=== PATIENT | female | born 1935 | race Caucasian/White ===

== ENCOUNTER 2017-09-21 13:58 | Emergency (ER) | payer OTHER, MEDICARE ==
[~2017-09-21] VITALS: Ht 162.6 cm; Wt 81.2 kg
[~2017-09-21 13:58] MED LIST: ACARBOSE50 MG PO; ASPIRIN81 M2 PO; CAL-CITRATE PL1 EACH PO; CIPRO500 MG PO; COLACE100 MG PO; DAILY MULTIPLE1 EAC2 PO; ENDOCET 5-3251 EACH PO; FENOFIBRATE160 M1 PO; GLIMEPIRIDE4 MG PO; HYDROCHLOROTH12.5 M3 PO; HYDROCODON-ACE1 EAC7 PO; JANUVIA100 MG PO; KEFLEX500 MG PO; LEXAPRO10 MG PO; METFORMIN HCL1000 MG PO; MIRALAX255 GM PO; PANTOPRAZOLE SO40 MG PO; PHILLIPS' COLO1 EACH PO; PRAVASTATIN SOD40 MG PO; TORADOL10 MG PO; XANAX0.25 MG PO; ZOFRAN4 MG PO
[2017-09-21 14:35] LABS: APPEARANCE CLEAR ((CLEAR)); BILIRUBIN NEGATIVE; BLOOD NEGATIVE; COLOR YELLOW ((YELLOW)); GLUCOSE (STRIP) 150; KETONES NEGATIVE; LEUKOCYTES NEGATIVE; NITRITE NEGATIVE; PROTEIN (STRIP) 30; SPECIFIC GRAVITY 1.026 (1.000-1.030); UCUL ADDED? NO; UROBILINOGEN 0.2 MG/DL (0.2-1.0)
[2017-09-21] MEDS ORDERED: TESSALON PERLE100 MG PO (14:59)
[2017-09-21 15:27] VITALS: BP 172/65
== END 2017-09-21 15:28 | disposition home or self-care (01) ==
LOC: EME 13:58
PROVIDERS: Physician Assistant
DX: J06.9 Acute upper respiratory infection, unspecified (principal); E11.9 Type 2 diabetes mellitus without complications; I10 Essential (primary) hypertension; Z87.442 Personal history of urinary calculi; Z90.49 Acquired absence of other specified parts of digestive tract; Z87.891 Personal history of nicotine dependence; Z79.84 Long term (current) use of oral hypoglycemic drugs; Z79.82 Long term (current) use of aspirin; Z88.8 Allergy status to other drugs, medicaments and biological substances
CPT/HCPCS: 71046; 81003; 87502; 99281; 99283

== ENCOUNTER 2017-12-05 18:39 | Emergency (ER) | payer OTHER, MEDICARE ==
[~2017-12-05] VITALS: Ht 167.6 cm; Wt 83.0 kg
[~2017-12-05 18:39] MED LIST changes: +TESSALON PERLE100 MG PO
[2017-12-05] MEDS ORDERED: PERCOCET 5/31 TABLET PO (21:23)
[2017-12-05 22:42] VITALS: BP 139/72
== END 2017-12-05 22:42 | disposition home or self-care (01) ==
LOC: EME 18:39
DX: S22.43XA Multiple fractures of ribs, bilateral, initial encounter for closed fracture (principal); S62.645A Nondisplaced fracture of proximal phalanx of left ring finger, initial encounter for closed fracture; S50.11XA Contusion of right forearm, initial encounter; W01.0XXA Fall on same level from slipping, tripping and stumbling without subsequent striking against object, initial encounter; Y92.000 Kitchen of unspecified non-institutional (private) residence as the place of occurrence of the external cause; I10 Essential (primary) hypertension; E11.9 Type 2 diabetes mellitus without complications; Z79.84 Long term (current) use of oral hypoglycemic drugs; Z79.82 Long term (current) use of aspirin; Z87.891 Personal history of nicotine dependence
CPT/HCPCS: 71111; 73090; 73130; 93005; 99281; 99285

== ENCOUNTER 2018-01-27 14:59 | Inpatient (IN) | payer OTHER, MEDICARE ==
[~2018-01-27] VITALS: Ht 170.2 cm; Wt 81.5 kg
[~2018-01-27 14:59] MED LIST changes: +PERCOCET 5/31 TABLET PO
[2018-01-27 16:12] LABS: BASOPHIL (%) 0.6 % (0-1); EOSINOPHIL (%) 2.6 % (0-5); EOSINOPHIL COUNT 0.1 K/uL (0-0.3); HEMATOCRIT 34.2 % (36.0-46.0); HEMOGLOBIN 11.2 G/DL (11.9-15.5); IMMATURE GRANULOCYTE (%) 0.2 % (0.0-0.7); LYMPHOCYTE (%) 34.9 % (15-42); LYMPHOCYTE COUNT 1.8 K/uL (1.0-2.8); MCH 28.9 PG (29.0-34.0); MCHC 32.7 G/DL (30.0-36.0); MCV 88.4 FL (83-99); MONOCYTE (%) 14.1 % (3-12); MONOCYTE COUNT 0.7 K/uL (0-0.8); NEUTROPHIL (%) 47.6 % (45-76); NEUTROPHIL COUNT 2.4 K/uL (1.8-6.4); PLATELET COUNT 180 K/uL (156-360); RBC DIS.WIDTH-CV 14.8 % (11.8-14.6); RBC DIS.WIDTH-SD 47.8 % (39-53); RED BLOOD COUNT 3.87 M/uL (3.80-5.20)
[2018-01-27 16:20] LABS: INTER. NORMALIZED RATIO 1.1
[2018-01-27 16:22] LABS: PTT 27.8 SEC (25-37)
[2018-01-27 16:23] LABS: CHLORIDE 107 mEq/L (99-109); POTASSIUM 3.9 mEq/L (3.7-5.4); SODIUM 141 mEq/L (136-147)
[2018-01-27 16:25] LABS: GLUCOSE 96 mg/dL (70-99)
[2018-01-27 16:29] LABS: CREATININE 0.7 mg/dL (0.6-1.3); GFR ESTIMATE (CALCULATED) > 59 mL/min/
[2018-01-27 16:30] LABS: UREA NITROGEN (BUN) 10 mg/dL (9-23)
[2018-01-27 16:36] LABS: TROP-I INTERPRETATION NEGATIVE; TROPONIN-I 0.02 ng/mL (0.0-0.30)
[2018-01-27 17:35] LABS: APPEARANCE CLEAR ((CLEAR)); BILIRUBIN NEGATIVE; BLOOD NEGATIVE; COLOR STRAW ((YELLOW)); GLUCOSE (STRIP) NEGATIVE; KETONES NEGATIVE; LEUKOCYTES NEGATIVE; NITRITE NEGATIVE; PROTEIN (STRIP) NEGATIVE; SPECIFIC GRAVITY 1.011 (1.000-1.030); UCUL ADDED? NO; UROBILINOGEN 0.2 MG/DL (0.2-1.0)
[2018-01-27 19:57] LABS: AMYLASE 35 IU/L (1-118)
[2018-01-27 20:02] LABS: SERUM ETHYL ALCOHOL < 10 mg/dL
[2018-01-27 20:05] LABS: LIPASE 38 U/L (1.0-51.0)
[2018-01-27] MEDS ORDERED: DIOVAN40 MG PO (20:54)
[2018-01-27] MEDS ORDERED: PROBIOTIC1 EAC5 PO (20:54)
[2018-01-27] MEDS ORDERED: HIPREX1 GM PO (20:54)
[2018-01-27] MEDS ORDERED: B-12500 MC1 SL (20:55)
[2018-01-27] MEDS ORDERED: MELATIN3 MG PO (20:55)
[2018-01-27] MEDS ORDERED: ASCORBIC ACID500 M3 PO (20:55)
[2018-01-27] MEDS ORDERED: ACTOS15 MG PO (20:55)
[2018-01-27] MEDS ORDERED: TYLENOL EXTRA500 MG PO (20:56)
[2018-01-27] MEDS ORDERED: BIOFREEZE TP (20:56)
[2018-01-27 23:39] LABS: ALBUMIN 3.7 g/dL (3.2-4.8); CHLORIDE 107 mEq/L (99-109); POTASSIUM 3.9 mEq/L (3.7-5.4); SODIUM 142 mEq/L (136-147)
[2018-01-27 23:41] VITALS: BP 177/76
[2018-01-27 23:42] LABS: TOTAL PROTEIN 6.6 g/dL (6.4-8.3)
[2018-01-27 23:43] LABS: TOTAL BILIRUBIN 0.3 mg/dL (0.0-1.0)
[2018-01-27 23:45] LABS: ALKALINE PHOSPHATASE 66 IU/L (3-129); CREATININE 0.9 mg/dL (0.6-1.3); GFR ESTIMATE (CALCULATED) > 59 mL/min/
[2018-01-27 23:46] LABS: UREA NITROGEN (BUN) 11 mg/dL (9-23)
[2018-01-27 23:47] LABS: AST (GOT) 22 IU/L (2-34)
[2018-01-27 23:48] LABS: ALT (GPT) 18 IU/L (3-49)
[2018-01-28] VITALS (8 sets, daily range): BP systolic 131–172; BP diastolic 64–90
[2018-01-28 00:04] LABS: GLUCOSE 207 mg/dL (70-99)
[2018-01-28 01:19] LABS: HDL CHOLESTEROL 32 MG/DL (Desirable>=50); LDL CHOLESTEROL 98 mg/dL (Desirable<100); NON-HDL CHOLESTEROL 138 mg/dL (Desirable<160); TOTAL CHOLESTEROL 170 mg/dL (Desirable<200); TRIGLYCERIDES 202 MG/DL (Normal: <150)
[2018-01-28 10:53] LABS: HEMOGLOBIN A1c (GLYCOHEMOGLOB) 7.6 % (Below 5.7)
[2018-01-29 03:42] VITALS: BP 143/72
[2018-01-29 08:02] VITALS: BP 161/85
[2018-01-29] MEDS ORDERED: CLOPIDOGREL75 MG PO (11:25)
[2018-01-29] MEDS ORDERED: CARVEDILOL3.125 MG PO (11:25)
[2018-01-29 11:36] VITALS: BP 163/74
[2018-01-29] MEDS ORDERED: NOVOLOG 10100 UNITS/ SC (13:07)
[2018-01-29] MEDS ORDERED: COZAAR25 MG PO (13:08)
[2018-01-29] MEDS ORDERED: ACETAMINOPHEN325 M1 PO (13:09)
[2018-01-29] MEDS ORDERED: HEPARIN SO5000 UNIT4 SC (13:09)
== END 2018-01-29 12:19 | DRG 65 ==
LOC: EME 14:59 → EDOF 21:57 → 4SOUTH 21:57 → ENRESERV 22:15 → 4SOUTH 23:28 → 5SOUTH 01-28 12:13 → ENRESERV 01-28 12:14 → 5SOUTH 01-28 16:41
PROVIDERS: Emergency Medicine; Hospitalist
DX: I63.9 Cerebral infarction, unspecified (principal); G81.91 Hemiplegia, unspecified affecting right dominant side; R47.81 Slurred speech; I10 Essential (primary) hypertension; F41.9 Anxiety disorder, unspecified; R29.702 NIHSS score 2; E11.9 Type 2 diabetes mellitus without complications; E78.5 Hyperlipidemia, unspecified; Z79.899 Other long term (current) drug therapy; Z79.84 Long term (current) use of oral hypoglycemic drugs; Z79.82 Long term (current) use of aspirin; Z87.891 Personal history of nicotine dependence
CPT/HCPCS: 70450; 70496; 70498; 70551; 71045; 80048; 80053; 80061; 81003; 82150; 82948; 83036; 83690; 84484; 85025; 85025 91; 85610; 85730; 86850; 86900; 86901; 92610 GN; 93005; 93306; 97530 GO; 99281; 99285; G0378; G0480; G8978 GP CM; G8979 GP CK; G8987 GO CM; G8988 GO CL; G8996 GN CH; G8997 GN CH; G8998 GN CH; J1644; J7030

== ENCOUNTER 2018-01-29 12:39 | Inpatient (IN) | payer OTHER, MEDICARE ==
[~2018-01-29] VITALS: Ht 167.6 cm; Wt 87.0 kg
[~2018-01-29 12:39] MED LIST changes: +ACTOS15 MG PO; +ASCORBIC ACID500 M3 PO; +B-12500 MC1 SL; +BIOFREEZE TP; +CARVEDILOL3.125 MG PO; +CLOPIDOGREL75 MG PO; +DIOVAN40 MG PO; +HIPREX1 GM PO; +MELATIN3 MG PO; +PROBIOTIC1 EAC5 PO; +TYLENOL EXTRA500 MG PO
[2018-01-29 13:01] VITALS: BP 173/74
[2018-01-29] MEDS ORDERED: NOVOLOG 10100 UNITS/ SC (13:07)
[2018-01-29] MEDS ORDERED: COZAAR25 MG PO (13:08)
[2018-01-29] MEDS ORDERED: HEPARIN SO5000 UNIT4 SC (13:09)
[2018-01-29] MEDS ORDERED: ACETAMINOPHEN325 M1 PO (13:09)
[2018-01-29 15:06] VITALS: BP 188/79
[2018-01-29 17:40] VITALS: BP 122/58
[2018-01-30 00:13] VITALS: BP 139/65
[2018-01-30 05:18] VITALS: BP 114/57
[2018-01-30 14:58] VITALS: BP 122/61
[2018-01-31 05:49] LABS: EOSINOPHIL COUNT 0.2 K/uL (0-0.3); HEMATOCRIT 33.2 % (36.0-46.0); HEMOGLOBIN 10.6 G/DL (11.9-15.5); IMMATURE GRANULOCYTE (%) 0.5 % (0.0-0.7); LYMPHOCYTE (%) 42.8 % (15-42); LYMPHOCYTE COUNT 1.7 K/uL (1.0-2.8); MCH 28.3 PG (29.0-34.0); MCHC 31.9 G/DL (30.0-36.0); MCV 88.5 FL (83-99); MONOCYTE (%) 14.8 % (3-12); MONOCYTE COUNT 0.6 K/uL (0-0.8); NEUTROPHIL (%) 36.9 % (45-76); NEUTROPHIL COUNT 1.5 K/uL (1.8-6.4); PLATELET COUNT 182 K/uL (156-360); RBC DIS.WIDTH-CV 15.1 % (11.8-14.6); RBC DIS.WIDTH-SD 48.2 % (39-53); RED BLOOD COUNT 3.75 M/uL (3.80-5.20)
[2018-01-31 06:08] VITALS: BP 139/65; BP 98/53
[2018-01-31 06:11] LABS: ALBUMIN 3.2 G/DL (3.2-4.8); ALKALINE PHOSPHATASE 51 IU/L (3-129); ALT (GPT) 11 IU/L (3-49); AST (GOT) 17 IU/L (2-34); CHLORIDE 107 MEQ/L (99-109); CREATININE 0.6 MG/DL (0.6-1.3); GFR ESTIMATE (CALCULATED) > 59 mL/min/; GLUCOSE 141 mg/dL (70-99); POTASSIUM 3.9 MEQ/L (3.7-5.4); SODIUM 139 MEQ/L (136-147); TOTAL BILIRUBIN 0.4 MG/DL (0.0-1.0); TOTAL PROTEIN 5.5 G/DL (6.4-8.3); UREA NITROGEN (BUN) 18 mg/dL (9-23)
[2018-01-31 15:00] VITALS: BP 123/58
[2018-02-01 05:44] VITALS: BP 124/60
[2018-02-01 15:24] VITALS: BP 140/66
[2018-02-02 05:07] VITALS: BP 139/63
[2018-02-02 15:15] VITALS: BP 146/67
[2018-02-03 04:16] VITALS: BP 122/75
[2018-02-03 07:23] LABS: BASOPHIL (%) 1.2 % (0-1); BASOPHIL COUNT 0.1 K/uL (0-0.1); EOSINOPHIL (%) 3.5 % (0-5); EOSINOPHIL COUNT 0.2 K/uL (0-0.3); HEMATOCRIT 36.8 % (36.0-46.0); IMMATURE GRANULOCYTE (%) 0.5 % (0.0-0.7); LYMPHOCYTE (%) 39.7 % (15-42); LYMPHOCYTE COUNT 1.7 K/uL (1.0-2.8); MCH 28.7 PG (29.0-34.0); MCHC 32.6 G/DL (30.0-36.0); MONOCYTE COUNT 0.6 K/uL (0-0.8); NEUTROPHIL (%) 40.1 % (45-76); NEUTROPHIL COUNT 1.7 K/uL (1.8-6.4); NRBC (%) 0.7 /100 WBC (0-0); PLATELET COUNT 209 K/uL (156-360); RBC DIS.WIDTH-CV 15.2 % (11.8-14.6); RBC DIS.WIDTH-SD 48.8 % (39-53); RED BLOOD COUNT 4.18 M/uL (3.80-5.20); WHITE BLOOD COUNT 4.3 K/uL (4.1-10.2)
[2018-02-03 08:19] LABS: CHLORIDE 103 MEQ/L (99-109); CREATININE 0.6 MG/DL (0.6-1.3); GFR ESTIMATE (CALCULATED) > 59 mL/min/; GLUCOSE 153 mg/dL (70-99); POTASSIUM 3.9 MEQ/L (3.7-5.4); SODIUM 137 MEQ/L (136-147); UREA NITROGEN (BUN) 18 mg/dL (9-23)
[2018-02-03 11:24] LABS: HEMOGLOBIN A1c (GLYCOHEMOGLOB) 7.4 % (Below 5.7)
[2018-02-03 15:11] VITALS: BP 140/68
[2018-02-04 04:32] VITALS: BP 110/59
[2018-02-04 15:01] VITALS: BP 136/60
[2018-02-05 05:23] VITALS: BP 171/74
[2018-02-05 16:22] VITALS: BP 149/67
[2018-02-06 04:20] VITALS: BP 109/56
[2018-02-06 15:14] VITALS: BP 122/59
[2018-02-07 03:59] VITALS: BP 118/66
[2018-02-07 15:13] VITALS: BP 134/59
[2018-02-08 06:15] VITALS: BP 129/80
[2018-02-08 15:55] VITALS: BP 140/66
[2018-02-09 05:12] VITALS: BP 112/58
[2018-02-09 07:09] LABS: IRON 73 MCG/DL (35-150); TRANSFERRIN (TIBC) 325.8 mg/dL (215-380); TRANSFERRIN SATUR. 22 % (20-55)
[2018-02-09 07:45] LABS: THYROTROPIN (TSH) 1.4 MIU/L (0.4-5.5)
[2018-02-09 07:54] LABS: FOLIC ACID (FOLATE) 19.9 NG/ML (5.0-22.0)
[2018-02-09 15:22] VITALS: BP 126/79
[2018-02-10 05:27] VITALS: BP 109/59
[2018-02-10 15:05] VITALS: BP 134/63
[2018-02-11 04:05] VITALS: BP 105/58
[2018-02-11 15:24] VITALS: BP 123/99
[2018-02-12 05:53] VITALS: BP 121/60
[2018-02-12 16:04] VITALS: BP 109/59
[2018-02-13 04:54] VITALS: BP 129/63
[2018-02-13 15:17] VITALS: BP 130/65
[2018-02-14 05:59] VITALS: BP 110/68
[2018-02-14 15:16] VITALS: BP 119/73
[2018-02-15 05:58] VITALS: BP 105/59
[2018-02-15 16:00] VITALS: BP 117/58
[2018-02-16 05:14] VITALS: BP 95/50
[2018-02-16 13:14] LABS: APPEARANCE SL.HAZY ((CLEAR)); BILIRUBIN NEGATIVE; BLOOD NEGATIVE; COLOR YELLOW ((YELLOW)); GLUCOSE (STRIP) NEGATIVE; KETONES NEGATIVE; LEUKOCYTES LARGE; NITRITE POSITIVE; PROTEIN (STRIP) NEGATIVE; SPECIFIC GRAVITY 1.016 (1.000-1.030); UROBILINOGEN 0.2 MG/DL (0.2-1.0)
[2018-02-16 13:33] LABS: BACTERIA RARE /HPF; EPITHELIAL CELLS NONE SEEN /HPF; HYALINE CASTS 0-5 /LPF; MUCUS TRACE /LPF; WHITE BLOOD CELLS TNTC /HPF (0-5)
[2018-02-16 15:58] VITALS: BP 126/70
[2018-02-16 21:52] VITALS: BP 112/56
[2018-02-17 05:14] VITALS: BP 94/52
[2018-02-17 09:41] VITALS: BP 133/60
[2018-02-17 15:10] VITALS: BP 118/65
[2018-02-18 05:51] VITALS: BP 122/58
[2018-02-18 06:52] LABS: HEMATOCRIT 35.5 % (36.0-46.0); HEMOGLOBIN 11.3 G/DL (11.9-15.5); MCH 28.4 PG (29.0-34.0); MCHC 31.8 G/DL (30.0-36.0); MCV 89.2 FL (83-99); PLATELET COUNT 178 K/uL (156-360); RBC DIS.WIDTH-CV 15.3 % (11.8-14.6); RED BLOOD COUNT 3.98 M/uL (3.80-5.20); WHITE BLOOD COUNT 4.1 K/uL (4.1-10.2)
[2018-02-18 07:19] LABS: ALBUMIN 3.4 G/DL (3.2-4.8); ALKALINE PHOSPHATASE 39 IU/L (3-129); ALT (GPT) 17 IU/L (3-49); AST (GOT) 20 IU/L (2-34); CHLORIDE 103 MEQ/L (99-109); CREATININE 0.9 MG/DL (0.6-1.3); GFR ESTIMATE (CALCULATED) > 59 mL/min/; GLUCOSE 155 mg/dL (70-99); POTASSIUM 4.6 MEQ/L (3.7-5.4); SODIUM 140 MEQ/L (136-147); TOTAL BILIRUBIN 0.4 MG/DL (0.0-1.0); TOTAL PROTEIN 5.7 G/DL (6.4-8.3); UREA NITROGEN (BUN) 21 mg/dL (9-23)
[2018-02-18 15:08] VITALS: BP 139/65
[2018-02-19 06:21] VITALS: BP 121/58
[2018-02-19] MEDS ORDERED: FENOFIBRATE160 M1 PO (12:45)
[2018-02-19] MEDS ORDERED: ASPIRIN81 M2 PO (12:45)
[2018-02-19] MEDS ORDERED: CEFTIN500 MG PO (12:45)
[2018-02-19] MEDS ORDERED: GABAPENTIN100 MG PO (12:45)
[2018-02-19] MEDS ORDERED: FAMOTIDINE20 MG PO (12:45)
[2018-02-19] MEDS ORDERED: METFORMIN HCL1000 MG PO (12:45)
[2018-02-19] MEDS ORDERED: COZAAR25 MG PO (12:45)
[2018-02-19] MEDS ORDERED: PRAVASTATIN SOD40 MG PO (12:45)
[2018-02-19] MEDS ORDERED: CLOPIDOGREL75 MG PO (12:45)
[2018-02-19] MEDS ORDERED: CARVEDILOL3.125 MG PO (12:45)
[2018-02-19] MEDS ORDERED: LEXAPRO10 MG PO (12:45)
[2018-02-19] MEDS ORDERED: JANUVIA100 MG PO (12:45)
[2018-02-19] MEDS ORDERED: LEXAPRO5 MG PO (12:47)
== END 2018-02-19 15:00 | disposition home health service (06) | DRG 57 ==
LOC: 3WEST 12:39 → ENPENDDIS 02-19 → 3WEST 02-19 15:00
PROVIDERS: Family Medicine Sports Medicine; Physical Medicine & Rehabilitation Pain Medicine; Psychiatry & Neurology Neurology
PROC: F07M0ZZ Range of Motion and Joint Mobility Treatment of Musculoskeletal System - Whole Body (ICD-10-PCS; principal; 2018-01-29)
DX: I69.351 Hemiplegia and hemiparesis following cerebral infarction affecting right dominant side (principal); F33.0 Major depressive disorder, recurrent, mild; E11.65 Type 2 diabetes mellitus with hyperglycemia; I69.328 Other speech and language deficits following cerebral infarction; R47.81 Slurred speech; N39.0 Urinary tract infection, site not specified; B96.20 Unspecified Escherichia coli [E. coli] as the cause of diseases classified elsewhere; R11.0 Nausea; R26.9 Unspecified abnormalities of gait and mobility; I10 Essential (primary) hypertension; E78.5 Hyperlipidemia, unspecified; K59.00 Constipation, unspecified; Z79.84 Long term (current) use of oral hypoglycemic drugs; Z87.440 Personal history of urinary (tract) infections; Z87.891 Personal history of nicotine dependence
CPT/HCPCS: 70450; 73030; 80048; 80053; 81003; 82306; 82607; 82746; 82948; 83036; 83540; 84443; 84466; 85025; 85027; 87077; 87086; 87186; 97110 GO; 97530 GP; J1644; J1815